=== PATIENT | female | born 1970 | race African-American/Black ===

== ENCOUNTER → 2019-04-24 | Outpatient (CLI) | payer BC ==
--- NOTE | 2019-04-24 14:15 | EXE ---
[facility] [place] [address] STRESS ECHOCARDIOGRAM Name: SHYANNE BRAUN Room #: REG [facility]#: [id number] Admission: 04/24/19 Attend Phys: Osmin Fletcher MD Discharge: Date of : 70 Report #: [id number] THIS REPORT FOR: //name// APPROVED REPORT Study performed: 04/24/2019 12:26:13 EXAM: Comprehensive 2D, Doppler, and color-flow Echocardiogram Patient Location: In-Patient Status: routine BSA: 2.20 HR: 84 bpm BP: 140/88 mmHg Rhythm: NSR Other Information Study Quality: Good Indications Elevated Troponin 2D Dimensions RVDd: 43.41 mm IVSd: 11.86 (7-11mm) LVOT Diam: 19.94 (18-24mm) LVDd: 49.03 mm PWd: 10.51 (7-11mm) LVDs: 33.78 (25-40mm) Aortic Root: 33.89 mm Volumes Left Atrial Volume (Systole) Single Plane 4CH: 80.29 mL Single Plane 2CH: 68.27 mL Aortic Valve AoV Peak Obey.: 1.34 m/s AO Peak Gr.: 7.16 mmHg LVOT Max P.90 mmHg LVOT Max V: 1.11 m/s DAVID Vmax: 2.58 cm2 Mitral Valve E/A Ratio: 1.1 MV Decel. Time: 125.95 ms MV E Max Obey.: 0.86 m/s MV A Obey.: 0.76 m/s [facility] [address] [place] [address] STRESS ECHOCARDIOGRAM Name: SHYANNE BRAUN Room #: REG [facility]#: [id number] Admission: 04/24/19 Attend Phys: Osmin Fletcher MD Discharge: Date of : 70 Report #: [id number] MV PHT: 36.53 ms IVRT: 46.14 ms Pulmonary Valve PV Peak Obey.: 1.07 m/s PV Peak Gr.: 4.57 mmHg Pulmonary Vein P Vein S: 0.65 m/s P Vein A: 0.35 m/s P Vein D: 0.44 m/s P Vein A Dur.: 87.7 msec P Vein S/D Ratio: 1.48 Tricuspid Valve TR Peak Obey.: 2.79 m/s TR Peak Gr.: 31.08 mmHg Left Ventricle The left ventricle is normal size. There is normal left ventricular wall thickness. The left ventricular systolic function is normal. The left ventricular ejection fraction is within the normal range. LVEF is 55%. The left ventricular diastolic function is normal. Right Ventricle The right ventricle is normal size. The right ventricular systolic function is normal. Atria Left atrium is mildly dilated. Right atrium is dilated. Aortic Valve The aortic valve is normal in structure. No aortic regurgitation is present. There is no aortic valvular stenosis. Mitral Valve The mitral valve is normal in structure. Mild mitral regurgitation. No evidence of mitral valve stenosis. Tricuspid Valve The tricuspid valve is normal in structure. Mild tricuspid regurgitation. Estimated PAP is 36mmHg Pulmonic Valve Pulmonic valve is not well visualized. Great Vessels The aortic root is normal in size. IVC is normal in size and collapses >50% with inspiration. [facility] [address] [place] [address] STRESS ECHOCARDIOGRAM Name: SHYANNE BRAUN Aurelia Room #: [facility]#: [id number] Admission: 04/24/19 Attend Phys: Osmin Fletcher MD Discharge: Date of : 70 Report #: [id number] Pericardium There is no pericardial effusion. <Conclusion> The left ventricle is normal size. There is normal left ventricular wall thickness. The left ventricular systolic function is normal. The right ventricle is normal size. Left atrium is mildly dilated. Right atrium is dilated. The aortic valve is normal in structure. Mild mitral regurgitation. Mild tricuspid regurgitation. Estimated PAP is 36mmHg <ELECTRONICALLY SIGNED> By: Osmin Fletcher MD 04/24/19 1415 1415 1415 Osmin Fletcher MD /INF
== END ==
LOC: CV 11:14
DX: I08.1 Rheumatic disorders of both mitral and tricuspid valves (principal); R74.8 Abnormal levels of other serum enzymes